=== PATIENT | male | born 1975 | race Caucasian/White ===

== ENCOUNTER 2024-06-21 06:38 | Emergency (ER) | payer OTHER, SELFPAY ==
--- NOTE | 2024-06-21 06:58 | XRR_ITS ---
PROCEDURE INFORMATION: Exam: XR Left Finger(s) Exam date and time: 06/21/2024 7:17 AM Age: 49 years old Clinical indication: Injury or trauma; Other: Smashed; Additional info: Injury 2nd digit TECHNIQUE: Imaging protocol: Radiologic exam of the left fingers. Views: Minimum 2 views. COMPARISON: No relevant prior studies available. FINDINGS: Bones/joints: Fracture of 2nd digit distal phalangeal tip. No joint dislocation. Soft tissues: Normal. XR/XR finger LT min 2V [id number] IMPRESSION: Fracture of 2nd digit distal phalangeal tip.
--- NOTE | 2024-06-21 06:59 | W.ED.UPPEXIN ---
HPI - Extremity Injury (Upper) General: Chief Complaint: Extremity Injury, Upper Stated Complaint: left hand pointer finger injury Time Seen by Provider: 06/21/24 06:44 Source: patient Mode of arrival: ambulatory Limitations: no limitations History of Present Illness: 49-year-old male states that he smashed his left pointer finger yesterday at work. This happened at noon. He states he has had continued pain in that finger he rates his pain a 8 out of 10 he had a small laceration to the tip as well. Denies any other injuries. Associated symptoms: Denies neck pain Related Data Previous Rx's ?Medication ?Instructions ?Recorded amoxicillin 500 mg-potassium 1 tab PO BID #14 tabs 06/21/24 clavulanate 125 mg tablet (Augmentin) Allergies Allergy/AdvReac Type Severity Reaction Status Date / Time No Known Allergies Allergy Verified 05/18/22 13:33 Review of Systems Const: Denies: fever(s), chills, body aches or change in appetite ENMT: Denies: throat pain or dental pain Card: Denies: chest pain Resp: Denies: dyspnea GI: Denies: abdominal pain, nausea, vomiting or diarrhea Musc: Reports: extremity pain; Denies: neck pain or back pain Skin/Breast: Denies: rash Neuro: Denies: headache(s) Physical Exam Const: COMMON NORMALS: no acute distress, patient oriented x3 and healthy appearing HENMT: COMMON NORMALS: normocephalic and atraumatic HEAD & SCALP: normocephalic and atraumatic Eye: COMMON NORMALS: conjunctivae normal CONJUNCTIVA: Yes conjunctivae normal Neck/C-Spine: COMMON NORMALS: full ROM and supple Chest: COMMONS NORMALS: normal inspection of the chest Resp: COMMON NORMALS: normal respiratory effort Cardio: COMMON NORMALS: regular rate RATE: regular rate Extremity: COMMON NORMALS: full ROM NARRATIVE EXTREMITY EXAM: Tenderness the distal tip of left index finger does have a 1 cm laceration to the very tip Neuro: COMMON NORMALS: patient oriented x3, moves all extremities and no focal motor deficits Psych: COMMON NORMALS: mental status grossly normal, Normal thought process present and cooperative THOUGHT PROCESS: Normal thought process present Skin: COMMON NORMALS: no rashes or lesions noted GENERAL SKIN EXAM: no rashes or lesions noted Course Vital Signs: Vital signs: Vital Signs Temperature 98.1 F 06/21/24 07:02 Pulse Rate 76 06/21/24 07:02 Respiratory Rate 18 06/21/24 07:02 Blood Pressure 141/93 06/21/24 07:02 Pulse Oximetry 98 06/21/24 07:02 Oxygen Delivery Me thod Room Air 06/21/24 07:02 MDM - Extremity Injury (Upper) Medical Decision Making Patient presents here with a tuft fracture to left index finger he does have a small laceration it is almost 24 hours old we will let it heal by secondary intention due to the risk of infection if it is repaired. Will place him in a splint start him on antibiotics and follow-up with orthopedics he understands agrees to plan Medical Records I reviewed the patient's medical records. XR interpretation done by ED provider, pending radiology final review ED provider radiology interpretation(s): xr L hand: fx to distal tip of index finger Discharge Plan Discharge Patient Disposition: Home Clinical Impression: Laceration Finger fracture, left Qualifiers: Encounter type: initial encounter Finger: index finger Fracture type: closed Phalanx: distal Fracture alignment: nondisplaced Qualified Code(s): S62.661A - Nondisplaced fracture of distal phalanx of left index finger, initial encounter for closed fracture Condition: Stable Prescriptions: New amoxicillin-pot clavulanate [Augmentin] 500-125 mg tablet 1 tab PO BID Qty: 14 0RF Discharge Orders: Discharge ED (Routine); Ordered 06/21/24 Ordered By: Mason Chew Referrals: Cristina Grayson MD [Physician] - 4-7 days Discharge Diet: Advance as tolerated Discharge Activity: Resume usual activity Patient Instructions: Finger Fracture (ED), Finger Laceration (ED) Print Language: Cambodian Coding Level of Care Code ED 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
[2024-06-21 07:02] VITALS: BP 141/93; PULSE 76; RESP 18; TEMP 36.7; O2SAT 98
[2024-06-21] MEDS: HYDROcodone-acetaminophen 5-325 mg Tablet 1 TAB PO (07:17)
[2024-06-21] MEDS: tetanus-dipt-pertussis 0.5 mL SDV IM (07:18)
[2024-06-21] MEDS: amoxicillin-clav 875-125 mg Tablet 1 TAB PO (07:45)
[2024-06-21 07:48] VITALS: BP 147/91; PULSE 78; O2SAT 99
--- NOTE | 2024-06-25 08:04 | DCPLANNER ---
Message sent to Ortho for Finger FX
== END 2024-06-21 07:53 | disposition home or self-care (01) ==
PROVIDERS: Emergency Provider Emergency Medicine
DX: S62.661A Nondisplaced fracture of distal phalanx of left index finger, initial encounter for closed fracture (principal); X58.XXXA Exposure to other specified factors, initial encounter; Z23 Encounter for immunization
CPT/HCPCS: 73140; 90471; 90715; 99283; J9999